=== PATIENT | male | born 1960 | race Caucasian/White ===

== ENCOUNTER → 2017-08-12 | Outpatient (CLI) | payer BC ==
--- NOTE | 2017-08-12 11:02 | CT ---
EXAMINATION TYPE: CT brain wo con DATE OF EXAM: 08/12/2017 HISTORY: Dizziness, WEINER CT DLP: 1132 mGycm. Automated Exposure Control for Dose Reduction was Utilized. TECHNIQUE: CT scan of the head is performed without contrast. COMPARISON: None. FINDINGS: There is no acute intracranial hemorrhage or midline shift identified. Ventricles and sul ci are within normal limits in size. The globes are intact bilaterally. There is mild to moderate mu cosal thickening in both maxillary sinuses, right greater than left. There is possible small air-flui d level in the right side. There is mild to moderate mucosal thickening in ethmoid sinuses bilaterall y. There is mild to moderate mucosal thickening with patchy opacification in the right sphenoid sinus . There is mild mucosal thickening posteriorly in the left sphenoid sinus. IMPRESSION: No acute intracranial hemorrhage or midline shift. 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 Results were communicated to ordering physician patent legal assistant via telephone at time of dictation as reque sted.
== END | disposition home or self-care (01) ==
LOC: RADCTMAIN 10:27
PROVIDERS: ATTEND Physician Assistant
DX: H53.9 Unspecified visual disturbance (principal)
CPT/HCPCS: 70450